=== PATIENT | female | born 1960 | race African-American/Black ===

== ENCOUNTER 2018-09-28 00:33 | Inpatient (IN) ==
[2018-09-28] MEDS ORDERED: NITROGLYCERIN DRIP 50 MG/250 ML BOTTLE IV ONE (00:56)
[2018-09-28] MEDS ORDERED: FUROSEMIDE 40 MG/4 ML VIAL ONE (00:56)
[2018-09-28] MEDS ORDERED: FUROSEMIDE 20 MG/2 ML VIAL ONE (00:56)
[2018-09-28] MEDS ORDERED: FUROSEMIDE 100 MG/10 ML VIAL IV STA (00:57)
[2018-09-28] MEDS: NITROGLYCERIN DRIP 50 MG/250 ML BOTTLE IV SCH (01:00)
[2018-09-28 01:45] LABS: ABG Base Excess -2.3 MMOL/L (-2.5-2.5); ABG HCO3 22.4 MMOL/L (20-26); ABG Oxygen Saturation 94.3 % (95-100); ABG PCO2 50.7 MM HG (35-48); ABG PH 7.298 (7.35-7.45); ABG PO2 81.2 MM HG (80-95); ABG TCO2 22.2 MMOL/L (23-27)
[2018-09-28] MEDS ORDERED: ETOMIDATE 20 MG/10 ML VIAL IV ONE (01:45)
[2018-09-28] MEDS ORDERED: ROCURONIUM 100 MG/10 ML VIAL IV ONE (01:45)
[2018-09-28] MEDS ORDERED: VECURONIUM 10 MG VIAL IV STA ×2 (01:55→03:48)
[2018-09-28] MEDS ORDERED: fentaNYL 100 MCG/2 ML VIAL IV STA (01:55)
[2018-09-28] MEDS ORDERED: MIDAZOLAM 2 MG/2 ML VIAL IV STA (01:56)
[2018-09-28] MEDS ORDERED: PROPOFOL 1,000 MG/100 ML BOTTLE IV ONE (02:01)
[2018-09-28] MEDS: PROPOFOL 1,000 MG/100 ML BOTTLE IV SCH ×4 (02:18→17:58)
[2018-09-28 02:24] LABS: Basophils % 0.5 % (0.0-0.8); Eosinophils # 0.3 10*3/uL (0.0-0.87); Eosinophils % 3.4 % (0.00-10.9); Hemoglobin 12.5 GM/DL (12.0-16.0); Immature Granulocytes % 0.5 %; Immature Granulocytes Absolute 0.04 #; Lymphocytes # 1.9 10*3/uL (1.4-4.0); Lymphocytes % 21.6 % (21.3-54.2); Mean Corpuscular HGB Conc 30.5 GM/DL (32-36); Mean Corpuscular Hemoglobin 29 PG (27-34); Mean Platelet Volume 9.8 FL (9.6-12.0); Monocytes # 0.6 10*3/uL (0.11-0.8); Monocytes % 6.8 % (1.7-12.7); Neutrophils # 5.8 10*3/uL (1.4-7.4); Neutrophils % 67.2 % (38.7-73.9); Platelet Count 236 T/CUMM (130-400); Red Blood Count 4.36 MC/CUMM (3.8-5.5); Red Cell Distribution Width 14.9 % (9.3-17.3); White Blood Count 8.6 T/CUMM (4-12)
[2018-09-28 02:34] LABS: INR 1.1; PT Patient Result 11.4 SECS; Partial Thromboplastin Time 24.6 SECS (0-40)
[2018-09-28 02:47] LABS: Albumin 3.3 G/DL (3.4-5.0); Bilirubin,Total 0.5 MG/DL (0.2-1.0); Calcium 9.2 MG/DL (8.5-10.1); Osmolality,Calculated 287.1 MOS/KG (273-304); Total Protein 7.5 G/DL (6.4-8.3)
[2018-09-28 02:53] LABS: Apearance,Urine CLEAR (Clear); Bilirubin,Urine Negative (Negative); Blood, Urine Negative (Negative); Glucose,Urine (UA) Negative (Negative); Ketones,Urine Negative (Negative); Mucus,Urine Occasional /LPF (Occasional); Nitrite,Urine Negative (Negative); Protein,Urine Negative; Squamous Epithelial Cell,Urine Occasional /HPF (0-10); Urine Color Straw (Yellow); Urine Specific Gravity 1.006 (1.001-1.035); Urine Urobilinogen < 2.0 EU/DL (0.2-1.0)
[2018-09-28] MEDS ORDERED: DEXTROSE 50% 25 GM/50 ML SYRINGE IV PRN (03:31)
[2018-09-28] MEDS ORDERED: GLUCAGON 1 MG VIAL IM PRN (03:31)
[2018-09-28] MEDS ORDERED: ALBUTEROL 2.5 MG/3 ML NEB RESP TX PRN (03:31)
[2018-09-28] MEDS ORDERED: ONDANSETRON 4 MG/2 ML VIAL IV PRN (03:31)
[2018-09-28] MEDS ORDERED: MAGNESIUM SULF RIDER 2 GM in PREMIX 1 EACH IV PRN (03:44)
[2018-09-28] MEDS ORDERED: MAGNESIUM SULF RIDER 4 GM in PREMIX 1 EACH IV PRN (03:44)
[2018-09-28] MEDS ORDERED: VECURONIUM 10 MG VIAL IV ONE (03:49)
[2018-09-28] MEDS ORDERED: MIDAZOLAM 100 MG in SODIUM CHLORIDE 0.9% 80 ML IV PRN (03:50)
[2018-09-28] MEDS: ENOXAPARIN 40 MG/0.4 ML SYRINGE SUBCUT SCH (04:01)
[2018-09-28] MEDS: PANTOPRAZOLE 40 MG VIAL IV SCH (04:02)
[2018-09-28] MEDS: FUROSEMIDE 40 MG/4 ML VIAL IV SCH ×2 (07:19→15:07)
[2018-09-28] MEDS: INSULIN REGULAR 100 UNIT/ML SUBCUT SCH ×4 (07:32→20:18)
[2018-09-28 08:25] LABS: ABG Base Excess 1.8 MMOL/L (-2.5-2.5); ABG HCO3 26.1 MMOL/L (20-26); ABG Oxygen Saturation 99.9 % (95-100); ABG PH 7.404 (7.35-7.45); ABG TCO2 23.2 MMOL/L (23-27)
[2018-09-28] MEDS: LISINOPRIL 20 MG TABLET PO SCH (12:47)
[2018-09-28] MEDS: SPIRONOLACTONE 25 MG TABLET PO SCH (12:48)
[2018-09-28] MEDS: FLUoxetine 20 MG CAPSULE PO SCH (12:48)
[2018-09-28] MEDS ORDERED: cloNIDine 0.1 MG TABLET PO ONE (14:40)
[2018-09-28] MEDS: CARVEDILOL 12.5 MG TABLET PO SCH (17:10)
[2018-09-29] MEDS: NITROGLYCERIN DRIP 50 MG/250 ML BOTTLE IV SCH (02:25)
[2018-09-29] MEDS: ENOXAPARIN 40 MG/0.4 ML SYRINGE SUBCUT SCH (03:34)
[2018-09-29] MEDS: PANTOPRAZOLE 40 MG VIAL IV SCH (03:34)
[2018-09-29 04:41] LABS: ABG Base Excess 3.9 MMOL/L (-2.5-2.5); ABG HCO3 27.9 MMOL/L (20-26); ABG Oxygen Saturation 96.8 % (95-100); ABG PCO2 42.1 MM HG (35-48); ABG PH 7.438 (7.35-7.45); ABG PO2 83.5 MM HG (80-95); ABG TCO2 25.1 MMOL/L (23-27); Allen Test Positive; Pt O2 Delivery Device Ventilator
[2018-09-29 05:04] LABS: Basophils % 0.2 % (0.0-0.8); Eosinophils # 0.1 10*3/uL (0.0-0.87); Eosinophils % 0.7 % (0.00-10.9); Hematocrit 36.7 VOL% (35.7-47.0); Hemoglobin 11.7 GM/DL (12.0-16.0); Immature Granulocytes % 0.4 %; Immature Granulocytes Absolute 0.04 #; Lymphocytes # 1.1 10*3/uL (1.4-4.0); Lymphocytes % 12.6 % (21.3-54.2); Mean Corpuscular HGB Conc 31.9 GM/DL (32-36); Mean Corpuscular Hemoglobin 29 PG (27-34); Mean Corpuscular Volume 91.5 FL (87-102); Mean Platelet Volume 10.2 FL (9.6-12.0); Monocytes % 10.9 % (1.7-12.7); Neutrophils # 6.7 10*3/uL (1.4-7.4); Neutrophils % 75.2 % (38.7-73.9); Platelet Count 196 T/CUMM (130-400); Red Blood Count 4.01 MC/CUMM (3.8-5.5); Red Cell Distribution Width 14.8 % (9.3-17.3); White Blood Count 8.9 T/CUMM (4-12)
[2018-09-29 05:28] LABS: Calcium 8.8 MG/DL (8.5-10.1); Osmolality,Calculated 286.1 MOS/KG (273-304); Potassium 3.3 MMOL/L (3.5-5.1)
[2018-09-29] MEDS: PROPOFOL 1,000 MG/100 ML BOTTLE IV SCH ×3 (06:14→17:12)
[2018-09-29] MEDS: INSULIN REGULAR 100 UNIT/ML SUBCUT SCH ×3 (09:12→17:46)
[2018-09-29] MEDS: SPIRONOLACTONE 25 MG TABLET PO SCH (09:34)
[2018-09-29] MEDS: CARVEDILOL 12.5 MG TABLET PO SCH ×2 (09:34→17:54)
[2018-09-29] MEDS: ASPIRIN CHEW 81 MG TABLET PO SCH ×3 (09:35→09:59)
[2018-09-29] MEDS: buPROPion 75 MG TABLET PER TUBE SCH ×2 (09:38→20:09)
[2018-09-29] MEDS: FLUoxetine 20 MG CAPSULE PO SCH (09:39)
[2018-09-29] MEDS: FUROSEMIDE 40 MG/4 ML VIAL IV SCH ×2 (09:39→16:16)
[2018-09-29] MEDS: LISINOPRIL 20 MG TABLET PO SCH (09:39)
[2018-09-29] MEDS: POTASSIUM CHLORIDE 20 MEQ/15 ML UDCUP PER TUBE PRN ×3 (09:59→15:30)
[2018-09-29] MEDS ORDERED: GLUCAGON 1 MG VIAL IM PRN (11:36)
[2018-09-29] MEDS ORDERED: DEXTROSE 50% 25 GM/50 ML VIAL IV PRN (11:36)
[2018-09-29] MEDS ORDERED: SODIUM CHLORIDE 0.9% 500 ML IV ONE ×2 (13:08→21:27)
[2018-09-30] MEDS: INSULIN REGULAR 100 UNIT/ML SUBCUT SCH ×5 (00:08→20:00)
[2018-09-30] MEDS: NITROGLYCERIN DRIP 50 MG/250 ML BOTTLE IV SCH (01:16)
[2018-09-30 03:48] LABS: ABG Base Excess 2.3 MMOL/L (-2.5-2.5); ABG HCO3 26.5 MMOL/L (20-26); ABG Oxygen Saturation 98.9 % (95-100); ABG PCO2 37.2 MM HG (35-48); ABG PH 7.455 (7.35-7.45); ABG TCO2 23.3 MMOL/L (23-27); Allen Test Positive; Pt O2 Delivery Device Ventilator
[2018-09-30] MEDS: PROPOFOL 1,000 MG/100 ML BOTTLE IV SCH ×2 (03:51→05:41)
[2018-09-30] MEDS: ENOXAPARIN 40 MG/0.4 ML SYRINGE SUBCUT SCH (04:08)
[2018-09-30] MEDS: PANTOPRAZOLE 40 MG VIAL IV SCH (04:08)
[2018-09-30 05:13] LABS: Basophils % 0.3 % (0.0-0.8); Eosinophils # 0.2 10*3/uL (0.0-0.87); Eosinophils % 1.8 % (0.00-10.9); Hematocrit 35.1 VOL% (35.7-47.0); Hemoglobin 10.6 GM/DL (12.0-16.0); Immature Granulocytes % 0.6 %; Immature Granulocytes Absolute 0.05 #; Lymphocytes # 1.5 10*3/uL (1.4-4.0); Mean Corpuscular HGB Conc 30.2 GM/DL (32-36); Mean Corpuscular Hemoglobin 29 PG (27-34); Mean Corpuscular Volume 94.4 FL (87-102); Mean Platelet Volume 9.9 FL (9.6-12.0); Monocytes # 1.2 10*3/uL (0.11-0.8); Monocytes % 13.1 % (1.7-12.7); Neutrophils # 5.9 10*3/uL (1.4-7.4); Neutrophils % 67.2 % (38.7-73.9); Platelet Count 180 T/CUMM (130-400); Red Blood Count 3.72 MC/CUMM (3.8-5.5); White Blood Count 8.8 T/CUMM (4-12)
[2018-09-30 05:27] LABS: Calcium 8.6 MG/DL (8.5-10.1); Osmolality,Calculated 288.1 MOS/KG (273-304); Potassium 3.8 MMOL/L (3.5-5.1)
[2018-09-30] MEDS: POTASSIUM CHLORIDE 20 MEQ/15 ML UDCUP PER TUBE PRN (05:51)
[2018-09-30] MEDS: buPROPion 75 MG TABLET PER TUBE SCH ×2 (09:27→20:00)
[2018-09-30] MEDS: FLUoxetine 20 MG CAPSULE PO SCH (09:27)
[2018-09-30] MEDS: LISINOPRIL 20 MG TABLET PO SCH (09:27)
[2018-09-30] MEDS: ASPIRIN CHEW 81 MG TABLET PO SCH (09:28)
[2018-09-30] MEDS: SPIRONOLACTONE 25 MG TABLET PO SCH (09:28)
[2018-09-30] MEDS: CARVEDILOL 12.5 MG TABLET PO SCH ×2 (09:28→17:51)
[2018-10-01] MEDS: ENOXAPARIN 40 MG/0.4 ML SYRINGE SUBCUT SCH (04:26)
[2018-10-01] MEDS: PANTOPRAZOLE 40 MG VIAL IV SCH (04:26)
[2018-10-01 05:31] LABS: Basophils % 0.4 % (0.0-0.8); Eosinophils # 0.3 10*3/uL (0.0-0.87); Eosinophils % 3.7 % (0.00-10.9); Hematocrit 34.3 VOL% (35.7-47.0); Hemoglobin 10.7 GM/DL (12.0-16.0); Immature Granulocytes % 0.5 %; Immature Granulocytes Absolute 0.04 #; Lymphocytes # 1.4 10*3/uL (1.4-4.0); Lymphocytes % 17.3 % (21.3-54.2); Mean Corpuscular HGB Conc 31.2 GM/DL (32-36); Mean Corpuscular Hemoglobin 29 PG (27-34); Mean Corpuscular Volume 93.5 FL (87-102); Mean Platelet Volume 10.2 FL (9.6-12.0); Monocytes # 0.8 10*3/uL (0.11-0.8); Monocytes % 10.7 % (1.7-12.7); Neutrophils # 5.3 10*3/uL (1.4-7.4); Neutrophils % 67.4 % (38.7-73.9); Platelet Count 186 T/CUMM (130-400); Red Blood Count 3.67 MC/CUMM (3.8-5.5); Red Cell Distribution Width 14.6 % (9.3-17.3); White Blood Count 7.8 T/CUMM (4-12)
[2018-10-01 05:40] LABS: Calcium 8.7 MG/DL (8.5-10.1); Osmolality,Calculated 284.1 MOS/KG (273-304); Potassium 3.9 MMOL/L (3.5-5.1)
[2018-10-01] MEDS ORDERED: POTASSIUM CHLORIDE 20 MEQ TABLET PO PRN (06:12)
[2018-10-01] MEDS: INSULIN REGULAR 100 UNIT/ML SUBCUT SCH (09:48)
[2018-10-01] MEDS: ASPIRIN CHEW 81 MG TABLET PO SCH (09:57)
[2018-10-01] MEDS: buPROPion 75 MG TABLET PER TUBE SCH ×2 (09:58→21:20)
[2018-10-01] MEDS: FUROSEMIDE 80 MG TABLET PO SCH (09:58)
[2018-10-01] MEDS: CARVEDILOL 12.5 MG TABLET PO SCH ×2 (09:58→18:04)
[2018-10-01] MEDS: SPIRONOLACTONE 25 MG TABLET PO SCH (09:58)
[2018-10-01] MEDS: LISINOPRIL 20 MG TABLET PO SCH (09:58)
[2018-10-01] MEDS: FLUoxetine 20 MG CAPSULE PO SCH (09:58)
[2018-10-02] MEDS: ENOXAPARIN 40 MG/0.4 ML SYRINGE SUBCUT SCH (04:40)
[2018-10-02 04:43] LABS: Calcium 8.5 MG/DL (8.5-10.1); Osmolality,Calculated 282.3 MOS/KG (273-304); Potassium 3.7 MMOL/L (3.5-5.1)
[2018-10-02 04:54] LABS: Risk Ratio 3.02; VLDL CHOLESTEROL 12.4 MG/DL
[2018-10-02 08:30] LABS: Troponin I 0.016 NG/ML (0.00-0.045)
[2018-10-02] MEDS: CARVEDILOL 12.5 MG TABLET PO SCH ×2 (12:36→16:40)
[2018-10-02] MEDS: ASPIRIN CHEW 81 MG TABLET PO SCH (12:37)
[2018-10-02] MEDS: LISINOPRIL 20 MG TABLET PO SCH (12:37)
[2018-10-02] MEDS: SPIRONOLACTONE 25 MG TABLET PO SCH (12:37)
[2018-10-02] MEDS: FUROSEMIDE 80 MG TABLET PO SCH (12:37)
[2018-10-02] MEDS: PANTOPRAZOLE 40 MG TABLET PO SCH (12:41)
[2018-10-02] MEDS: FLUoxetine 20 MG CAPSULE PO SCH (12:49)
[2018-10-02] MEDS: buPROPion 75 MG TABLET PER TUBE SCH ×2 (12:49→22:00)
[2018-10-02] MEDS ORDERED: diphenhydrAMINE CAP 25 MG CAPSULE PO ONE (12:57)
[2018-10-02] MEDS ORDERED: DIAZEPAM 5 MG TABLET PO ONE (12:57)
[2018-10-02] MEDS ORDERED: POTASSIUM CHLORIDE RIDER 10 MEQ in PREMIX 1 EACH IV PRN (12:57)
[2018-10-02] MEDS ORDERED: SODIUM CHLORIDE 0.45% 1,000 ML IV SCH (13:00)
[2018-10-02] MEDS ORDERED: MIDAZOLAM 2 MG/2 ML VIAL ONE (13:55)
[2018-10-02] MEDS ORDERED: LIDOCAINE 1% 20 ML VIAL ONE (13:55)
[2018-10-02] MEDS ORDERED: fentaNYL 100 MCG/2 ML VIAL ONE (13:56)
[2018-10-02] MEDS ORDERED: HEPARIN 5,000 UNIT/1 ML VIAL ONE (14:14)
[2018-10-02] MEDS: ROSUVASTATIN 10 MG TABLET PO SCH (22:02)
[2018-10-03 04:53] LABS: Calcium 8.9 MG/DL (8.5-10.1); Osmolality,Calculated 278.5 MOS/KG (273-304); Potassium 4.3 MMOL/L (3.5-5.1)
[2018-10-03 04:57] LABS: Basophils % 0.2 % (0.0-0.8); Eosinophils # 0.2 10*3/uL (0.0-0.87); Eosinophils % 3.4 % (0.00-10.9); Hemoglobin 10.9 GM/DL (12.0-16.0); Immature Granulocytes % 0.5 %; Immature Granulocytes Absolute 0.03 #; Lymphocytes # 1.2 10*3/uL (1.4-4.0); Mean Corpuscular HGB Conc 31.1 GM/DL (32-36); Mean Corpuscular Hemoglobin 29 PG (27-34); Mean Corpuscular Volume 92.6 FL (87-102); Mean Platelet Volume 9.8 FL (9.6-12.0); Monocytes # 0.8 10*3/uL (0.11-0.8); Monocytes % 12.8 % (1.7-12.7); Neutrophils # 3.9 10*3/uL (1.4-7.4); Neutrophils % 63.1 % (38.7-73.9); Platelet Count 206 T/CUMM (130-400); Red Blood Count 3.78 MC/CUMM (3.8-5.5); Red Cell Distribution Width 14.1 % (9.3-17.3); White Blood Count 6.1 T/CUMM (4-12)
[2018-10-03] MEDS: LISINOPRIL 20 MG TABLET PO SCH (09:06)
[2018-10-03] MEDS: PANTOPRAZOLE 40 MG TABLET PO SCH (09:07)
[2018-10-03] MEDS: buPROPion 75 MG TABLET PER TUBE SCH ×2 (09:07→21:01)
[2018-10-03] MEDS: CARVEDILOL 12.5 MG TABLET PO SCH ×2 (09:08→17:11)
[2018-10-03] MEDS: ASPIRIN CHEW 81 MG TABLET PO SCH (09:08)
[2018-10-03] MEDS: SPIRONOLACTONE 25 MG TABLET PO SCH (09:08)
[2018-10-03] MEDS: FLUoxetine 20 MG CAPSULE PO SCH (09:11)
[2018-10-03] MEDS: FUROSEMIDE 80 MG TABLET PO SCH (09:11)
[2018-10-03] MEDS: ROSUVASTATIN 10 MG TABLET PO SCH (21:01)
[2018-10-04] MEDS: FLUoxetine 20 MG CAPSULE PO SCH (08:34)
[2018-10-04] MEDS: ASPIRIN CHEW 81 MG TABLET PO SCH (08:34)
[2018-10-04] MEDS: buPROPion 75 MG TABLET PER TUBE SCH (08:35)
[2018-10-04] MEDS: SPIRONOLACTONE 25 MG TABLET PO SCH (08:35)
[2018-10-04] MEDS: PANTOPRAZOLE 40 MG TABLET PO SCH (08:36)
[2018-10-04] MEDS: CARVEDILOL 12.5 MG TABLET PO SCH (08:36)
[2018-10-04] MEDS ORDERED: LISINOPRIL 10 MG TABLET PO SCH (09:00)
[2018-10-04] MEDS ORDERED: FUROSEMIDE 40 MG TABLET PO SCH (09:00)
[2018-10-04 11:18] VITALS: BP 120/65
== END 2018-10-04 13:58 | disposition home health service (06) | DRG 133 ==
LOC: N.ED 00:33 → N.EDINP 03:31 → SUATTDRO 03:31 → N.EDINP 04:30 → N.ICU 04:38 → N.TELEN 10-02 17:42
PROVIDERS: ADMIT Internal Medicine Geriatric Medicine; ATTEND Internal Medicine Cardiovascular Disease
PROC: CLCCHCL (ICD-10-PCS; 2018-10-02 15:15)